=== PATIENT | female | born 1965 | race Caucasian/White ===

== ENCOUNTER 2017-06-20 18:23 | Emergency (ER) | payer MEDICAID ==
[2017-06-20] MEDS: KETOROLAC 30 MG INJ IM (19:36)
[2017-06-20 19:40] LABS: URINE BLOOD (Dip) POC Trace-intact (NEGATIVE); URINE GLUCOSE (Dip) POC Negative (NEGATIVE); URINE KETONES (Dip) POC Negative (NEGATIVE); URINE LEUKOCYTE EST (Dip) POC 2+ (NEGATIVE); URINE NITRITE (Dip) POC Negative (NEGATIVE); URINE TOTAL PROTEIN POC Negative (NEGATIVE)
[2017-06-20] MEDS: CIPROFLOXACIN 500 MG TAB PO (19:51)
== END 2017-06-20 20:15 | disposition home or self-care (01) ==
LOC: FTE 18:23
DX: N39.0 Urinary tract infection, site not specified (principal)
CPT/HCPCS: 81003; 96372; 99284-25